=== PATIENT | female | born 1980 | race Hispanic/Latino ===

== ENCOUNTER 2020-01-15 09:23 | Emergency (ER) | payer OTHER ==
[2020-01-15 10:10] LABS: Urine Blood 3+ (NEG); Urine Glucose NEGATIVE (NEG); Urine Protein TRACE (NEG); Urine Specific Gravity 1.025 (1.005-1.030); Urine pH 6.5 (5.0-7.0)
[2020-01-15 10:14] LABS: Absolute Lymphocytes (CBC) 1.8 K/uL (0.7-4.9); Hematocrit 39.8 % (36.0-45.0); Lymphocytes % 28.8 % (15.3-44.8); MPV 9.1 fL (7.6-11.3); RBC Red Blood Cell Count 4.39 M/uL (3.86-4.86)
--- NOTE | 2020-01-15 10:19 | RAD REPORT ---
EXAM DESCRIPTION: CT - Stone Protocol - 01/15/2020 10:04 am CLINICAL HISTORY: Flank pain. ABD PAIN COMPARISON: No comparisons TECHNIQUE: Axial images were obtained without oral or IV contrast. Lack of contrast limits solid org an and vascular assessment. The [id number] spans the entirety of the system partially obscuring uppermost abdomen and lung bases. Coronal reformatted images were obtained and reviewed. All CT scans are performed using dose optimization technique as appropriate and may include automated exposure control or mA/KV adjustment according to patient size. FINDINGS: The lower lung almonte are clear. Cholecystectomy clips. Imaged portions of the liver and spleen show no suspicious findings on non-contrast imaging. The panc reas and adrenal glands are normal. No pathologic lymphadenopathy in the abdomen or pelvis. No urinary tract stones or obstructive uropathy. No bowel obstruction, free air, free fluid or abscess. Normal appendix noted. No significant bony abnormality. IMPRESSION: No urinary tract stones or obstructive uropathy.
[2020-01-15 10:33] LABS: ALT/SGPT 29 U/L (12-78); AST/SGOT 49 U/L (15-37); Albumin 3.7 g/dL (3.4-5.0); Alkaline Phosphatase 90 U/L (45-117); BUN Blood Urea Nitrogen 7 mg/dL (7-18); Bicarbonate 24 mmol/L (21-32); Bilirubin Direct 0.2 mg/dL (0-0.2); Bilirubin Total 0.8 mg/dL (0.2-1.0); Glucose Level 92 mg/dL (74-106); Lipase 82 U/L (73-393); Potassium 3.9 mmol/L (3.5-5.1); Protein, Total 8.1 g/dL (6.4-8.2); Sodium Level 139 mmol/L (136-145)
--- NOTE | 2020-01-15 11:25 | EDPHYS ---
Physician Documentation [facility] Name: Connie Weaver Age: 39 yrs Sex: Female : 1980 Arrival Date: 01/15/2020 Time: 09:27 Bed 6 Private MD: ED Physician Paulo Sifuentes HPI: 01/15 10:53 This 39 yrs old Female presents to ER via Ambulatory with complaints of kb Abdominal Pain. 10:53 The patient presents with abdominal pain in the right upper quadrant. Onset: The kb symptoms/episode began/occurred 6 day(s) ago. The symptoms do not radiate. Associated signs and symptoms: none. The symptoms are described as constant. Modifying factors: The symptoms are alleviated by nothing, the symptoms are aggravated by movement. Severity of pain: At its worst the pain was moderate in the emergency department the pain is unchanged. The patient has not experienced similar symptoms in the past. The patient has not recently seen a physician. RUQ pain started Monday. Went to PCP today and was told she needed a CT, but it takes 24 hours to get it approved by insurance so she was told to come to the ER so it would be done faster. Pt states she thinks it is a pulled muscle because she is active at work, but was told her pain was too bad to be a muscle. Pt denies urinary symptoms, fever, n/v/d. 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 reports spotting rb1 Historical: - Allergies: 09: No Known Allergies; rb1 - Home Meds: : Tiana [Active]; Tramadol Oral [Active]; Allopurinol Oral [Active]; atorvastatin oral rb1 oral [Active]; - PMHx: 09:29 High Cholesterol; Gout; Migraines; rb1 - PSHx: 09: Cholecystectomy; rb1 - Immunization history:: Adult Immunizations up to date. - Coronavirus screen:: The patient has NOT traveled to [place] in the past 14 days. The patient has NOT had contact with known/suspected case of Coronavirus?. - Social history:: Smoking status: Patient/guardian denies using. - Ebola Screening: : Patient negative for fever greater than or equal to 101.5 degrees Fahrenheit, and additional compatible Ebola Virus Disease symptoms. ROS: 10:53 Constitutional: Negative for fever, chills, and weight loss, Neck: Negative for injury, kb pain, and swelling, Cardiovascular: Negative for chest pain, palpitations, and edema, Respiratory: Negative for shortness of breath, cough, wheezing, and pleuritic chest pain, Back: Negative for injury and pain, : Negative for injury, bleeding, discharge, and swelling, MS/Extremity: Negative for injury and deformity, Skin: Negative for injury, rash, and discoloration, Neuro: Negative for headache, weakness, numbness, tingling, and seizure. 10:53 Abdomen/GI: Positive for abdominal pain, Negative for nausea, vomiting, and diarrhea, constipation. Exam: 10:53 Constitutional: This is a well developed, well nourished patient who is awake, alert, kb and in no acute distress. Head/Face: Normocephalic, atraumatic. Chest/axilla: Normal chest wall appearance and motion. Nontender with no deformity. No lesions are appreciated. Cardiovascular: Regular rate and rhythm with a normal S1 and S2. No gallops, murmurs, or rubs. Normal PMI, no JVD. No pulse deficits. Respiratory: Lungs have equal breath sounds bilaterally, clear to auscultation and percussion. No rales, rhonchi or wheezes noted. No increased work of breathing, no retractions or nasal flaring. Back: No spinal tenderness. No costovertebral tenderness. Full range of motion. Skin: Warm, dry with normal turgor. Normal color with no rashes, no lesions, and no evidence of cellulitis. MS/ Extremity: Pulses equal, no cyanosis. Neurovascular intact. Full, normal range of motion. Neuro: Awake and alert, GCS 15, oriented to person, place, time, and situation. Cranial nerves II-XII grossly intact. Motor strength 5/5 in all extremities. Sensory grossly intact. Cerebellar exam normal. Normal gait. 10:53 Abdomen/GI: Inspection: abdomen appears normal, Bowel sounds: normal, in all quadrants, Palpation: moderate abdominal tenderness, severe abdominal tenderness, in the right upper quadrant. Vital Signs: 09:29 BP 131 / 76; Pulse 76; Resp 17; Temp 98.4(O); Pulse Ox 100% on R/A; Weight 89.81 kg rb1 (R); Height 5 ft. 5 in. (165.10 cm) (R); Pain 9/10; 10:08 BP 137 / 66; Pulse 67; Resp 18; Pulse Ox 100% on R/A; rb1 11:00 BP 131 / 61; Pulse 71; Resp 17; Pulse Ox 100% on R/A; rb1 11:45 BP 126 / 62; Pulse 65; Resp 17; Pulse Ox 100% on R/A; rb1 09:29 Body Mass Index 32.95 (89.81 kg, 165.10 cm) rb1 MDM: 09:30 Patient medically screened. kb 10:00 ED course: Pt has obvious pain with movement from laying to sitting and with walking. . kb 10:55 Data reviewed: vital signs, nurses notes. Data interpreted: Pulse oximetry: on room air kb is 100 %. Interpretation: normal. 11:23 Counseling: I had a detailed discussion with the patient and/or guardian regarding: the kb historical points, exam findings, and any diagnostic results supporting the discharge/admit diagnosis, lab results, radiology results, the need for outpatient follow up, a family practitioner, to return to the emergency department if symptoms worsen or persist or if there are any questions or concerns that arise at home. 01/15 09:44 Order name: Basic Metabolic Panel; Complete Time: 10:40 kb 01/15 09:44 Order name: CBC with Diff kb 01/15 09:44 Order name: Hepatic Function; Complete Time: 10:40 kb 01/15 09:44 Order name: Lipase; Complete Time: 10:40 kb 01/15 09:58 Order name: Urine Dipstick--Ancillary (enter results) bd 01/15 09:58 Order name: Urine --Ancillary (enter results) bd 01/15 09:44 Order name: IV Saline Lock; Complete Time: 10:04 kb 01/15 09:44 Order name: Labs collected and sent; Complete Time: 10:04 kb 01/15 09:44 Order name: CT Stone Protocol; Complete Time: 11:23 kb 01/15 09:44 Order name: Urine Dipstick-Ancillary (obtain specimen); Complete Time: 09:58 kb 01/15 10:12 Order name: Urine --Ancillary; Complete Time: 10:12 EDMS 01/15 10:12 Order name: Urine Dipstick-Ancillary; Complete Time: 10:12 EDMS 01/15 10:16 Order name: CBC with Automated Diff EDMS Administered Medications: 11:40 Drug: TORadol - Ketorolac 15 mg Route: IVP; Site: right antecubital; rb1 11:46 Follow up: Response: Medication administered at discharge. rb1 Disposition: 14:27 Co-signature as Attending Physician, Paulo Sifuentes MD. rn Disposition: 01/15/20 11:23 Discharged to Home. Impression: Upper abdominal pain, unspecified. - Condition is Stable. - Discharge Instructions: Abdominal Pain, Adult, [id number], Muscle Strain, [id number]. - Prescriptions for Cyclobenzaprine 10 mg Oral Tablet - take 1 tablet by ORAL route every 8 hours As needed; 21 tablet. Diclofenac Sodium 75 mg Oral Tablet, Delayed Release (E.C.) - take 1 tablet by ORAL route 2 times per day As needed; 30 tablet. - Medication Reconciliation Form, Thank You Letter, Antibiotic Education, Prescription Opioid Use form. - Follow up: Emergency Department; When: As needed; Reason: Worsening of condition. Follow up: Private Physician; When: 2 - 3 days; Reason: Recheck today's complaints, Continuance of care, Re-evaluation by your physician. Signatures: Dispatcher [employer] EDMS Krista Manrique, ROLL ON WORKER-C ROLL ON WORKER-Ckb Paulo Sifuentes MD MD rn Barber, Rebecca, RN RN rb1 Corrections: (The following items were deleted from the chart) 11:29 10:53 RUQ pain started Fawad. Went to PCP today and was told she needed a CT, but it kb takes 24 hours to get it approved by insurance so she was told to come to the ER so it would be done faster. kb 11:46 11:23 01/15/2020 11:23 Discharged to Home. Impression: Upper abdominal pain, rb1 unspecified. Condition is Stable. Forms are Medication Reconciliation Form, Thank You Letter, Antibiotic Education, Prescription Opioid Use. Follow up: Emergency Department; When: As needed; Reason: Worsening of condition. Follow up: Private Physician; When: 2 - 3 days; Reason: Recheck today's complaints, Continuance of care, Re-evaluation by your physician. kb
--- NOTE | 2020-01-15 11:25 | ER ---
Nurse's Notes [facility] Name: Connie Weaver Age: 39 yrs Sex: Female : 1980 Arrival Date: 01/15/2020 Time: : Bed 6 Private MD: Diagnosis: Upper abdominal pain, unspecified Presentation: 01/15 09:29 Presenting complaint: Patient states: Right upper quadrant pain since Monday. Pain rb1 08/06. Denies fever, NVD. Reports loose stools because she is currently doing a cleanse and is a vegetarian. Transition of care: patient was not received from another setting of care. Onset of symptoms was January 10, 2020. Risk Assessment: Do you want to hurt yourself or someone else? Patient reports no desire to harm self or others. Initial Sepsis Screen: Does the patient meet any 2 criteria? No. Patient's initial sepsis screen is negative. Does the patient have a suspected source of infection? No. Patient's initial sepsis screen is negative. Care prior to arrival: None. : Method Of Arrival: Ambulatory rb1 : Acuity: OLIVIER 3 rb1 Triage Assessment: : General: Appears uncomfortable, Behavior is calm, cooperative, Denies fever. General: rb1 Pt. reports that Davida Chamorro sent her here for a CT scan. Pain: Complains of pain in right upper quadrant Pain currently is 9 out of 10 on a pain scale. Pain began Fawad. Neuro: Level of Consciousness is awake, alert, obeys commands, Oriented to person, place, time, situation. Cardiovascular: Capillary refill < 3 seconds is brisk in bilateral fingers. Respiratory: Airway is patent Respiratory effort is even, unlabored, Respiratory pattern is regular, symmetrical. GI: Reports Loose stools due to doing a cleanse. : Denies burning with urination. Derm: Skin is pink, warm \T\ dry. 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 reports spotting rb1 Historical: - Allergies: No Known Allergies; rb1 - Home Meds: Tiana [Active]; Tramadol Oral [Active]; Allopurinol Oral [Active]; atorvastatin oral rb1 oral [Active]; - PMHx: High Cholesterol; Gout; Migraines; rb1 - PSHx: 09:29 Cholecystectomy; rb1 - Immunization history:: Adult Immunizations up to date. - Coronavirus screen:: The patient has NOT traveled to [place] in the past 14 days. The patient has NOT had contact with known/suspected case of Coronavirus?. - Social history:: Smoking status: Patient/guardian denies using. - Ebola Screening: : Patient negative for fever greater than or equal to 101.5 degrees Fahrenheit, and additional compatible Ebola Virus Disease symptoms. Screenin:29 Abuse screen: Denies threats or abuse. Nutritional screening: Vegetarian . Tuberculosis rb1 screening: No symptoms or risk factors identified. Fall Risk None identified. Assessment: 09: GI: Abd is soft Abdomen is tender to palpation in right upper quadrant. rb1 10:20 Reassessment: Pt. is in radiology. rb1 10:58 Reassessment: Patient appears in no apparent distress at this time. Patient and/or rb1 family updated on plan of care and expected duration. Pain level reassessed. Patient is alert, oriented x 3, equal unlabored respirations, skin warm/dry/pink. Gave the pt. a pillow. Call light within reach. 11:45 Reassessment: Patient appears in no apparent distress at this time. No changes from rb1 previously documented assessment. Vital Signs: 09:29 BP 131 / 76; Pulse 76; Resp 17; Temp 98.4(O); Pulse Ox 100% on R/A; Weight 89.81 kg rb1 (R); Height 5 ft. 5 in. (165.10 cm) (R); Pain 9/10; 10:08 BP 137 / 66; Pulse 67; Resp 18; Pulse Ox 100% on R/A; rb1 11:00 BP 131 / 61; Pulse 71; Resp 17; Pulse Ox 100% on R/A; rb1 11:45 BP 126 / 62; Pulse 65; Resp 17; Pulse Ox 100% on R/A; rb1 09:29 Body Mass Index 32.95 (89.81 kg, 165.10 cm) rb1 ED Course: :27 Patient arrived in ED. mr 09:29 Krista Manrique F[facility]-C [facility]. kb 09:29 Paulo Sifuentes MD is Attending Physician. kb 09:29 Arm band placed on right wrist. rb1 09:29 Patient has correct armband on for positive identification. Bed in low position. Call rb1 light in reach. Side rails up X 1. Pulse ox on. NIBP on. Warm blanket given. 09:41 Fernanda Casanova, RN is Primary Nurse. rb1 09:43 Triage completed. rb1 09:57 Urine collected: clean catch specimen, octavio colored. dh3 10:00 Inserted saline lock: 22 gauge in right antecubital area, using aseptic technique. rb1 Blood collected. 10:21 CT Stone Protocol In Process Unspecified. EDMS 11:45 No provider procedures requiring assistance completed. IV discontinued, intact, rb1 bleeding controlled, No redness/swelling at site. Pressure dressing applied. Administered Medications: 11:40 Drug: TORadol - Ketorolac 15 mg Route: IVP; Site: right antecubital; rb1 11:46 Follow up: Response: Medication administered at discharge. rb1 Outcome: 11:23 Discharge ordered by MD. kb 11:45 Discharged to home via wheelchair. rb1 11:45 Condition: stable 11:45 Discharge instructions given to patient, Instructed on discharge instructions, follow up and referral plans. medication usage, Demonstrated understanding of instructions, follow-up care, medications, Prescriptions given X 2. 11:46 Patient left the ED. rb1 Signatures: Dispatcher [employer] EDMS Krista Manrique, CHILD SUPPORT SPECIALISTMarvinC CHILD SUPPORT SPECIALIST-Ugo Christ Rae mr Fernanda Casanova, RN RN rb1 Regina Grover 3 Corrections: (The following items were deleted from the chart) 10:59 10:29 BP 137 / 66; Pulse 67bpm; Resp 18bpm; Pulse Ox 100% RA; rb1 rb1
[2020-01-15] MEDS ORDERED: KETOROLAC 30 MG/ML INJ ONE (11:39)
[2020-01-15 12:09] VITALS: TEMP 98.4; O2SAT 100
[2020-01-15 12:14] VITALS: BP 126/62
== END 2020-01-15 11:46 | disposition home or self-care (01) ==
LOC: ER 09:23
DX: R10.11 Right upper quadrant pain (principal); E78.00 Pure hypercholesterolemia, unspecified
CPT/HCPCS: 36415; 74176; 76377; 80048; 80076; 81003; 81025; 83690; 85025; 96374; 99284